=== PATIENT | male | born 1980 | race Caucasian/White ===

== ENCOUNTER 2018-08-14 18:38 | Observation (INO) | payer MEDICAID, OTHER ==
[~2018-08-14] VITALS: Ht 162.6 cm; Wt 70.5 kg
[~2018-08-14 18:38] MED LIST: ACET500C5 PO; CIPR500T4 PO; FAMO-96 PO; ONDA4TAB14 PO
[2018-08-15] VITALS (12 sets, daily range): BP systolic 103–124; BP diastolic 53–75; PULSE 43–68; RESP 18–19; Ht 162.6 cm; Wt 70.5 kg
--- NOTE | 2018-08-15 02:41 | ERD ---
ER Documentation Chief Complaint Chief Complaint CP RADIATING TO LEFT HAND WITH SLIGHT SOB AND VISION PROBLEMS X 2 DAYS HPI This is a 38-year-old male with chest pain radiating to the left and with slight shortness of breath over the past 2 days. He said the pain is mild to moderate, substernal that radiates to his left shoulder. Mild associated shortness of breath and mild nausea. History of hypercholesterolemia. Family history of cardiac disease. No other current complaints. ROS All systems reviewed and are negative except as per history of present illness. Medications Home Meds Discontinued Scripts Ciprofloxacin Hcl* (Ciprofloxacin Hcl*) 500 Mg Tablet, 500 MG PO BID for 7 Days, TAB Prov:ZULEIKA REDDY-Stephie 10/08/17 Famotidine* (Pepcid*) 20 Mg Tablet, 20 MG PO BID for 30 Days, TAB Prov:ZULEIKA REDDY-Stephie 10/08/17 Acetaminophen* (Tylophen*) 500 Mg Capsule, 1 CAP PO Q6H PRN for PAIN AND OR ELEVATED TEMP, #20 CAP Prov:ZULEIKA REDDY PA-C 10/08/17 Ondansetron (Ondansetron Odt) 4 Mg Tab.rapdis, 4 MG PO Q6H PRN for NAUSEA AND/OR VOMITING, #10 TAB Prov:ZULEIKA REDDY PA-C 10/08/17 Allergies Allergies: Coded Allergies: No Known Allergy (Unverified , 08/14/18) PMhx/Soc Medical and Surgical Hx: pt denies Medical Hx, pt denies Surgical Hx Hx Alcohol Use: No Hx Substance Use: No Hx Tobacco Use: No Smoking Status: Never smoker Physical Exam Vitals Vital Signs Date Temp Pulse Resp B/P (MAP) Pulse Ox O2 O2 Flow FiO2 Time Delivery Rate 08/14/18 98.2 62 16 154/90 98 19:38 (111) Physical Exam Const: No acute distress Head: Atraumatic Eyes: Normal Conjunctiva ENT: Normal External Ears, Nose and Mouth. Neck: Full range of motion. No meningismus. Resp: Clear to auscultation bilaterally Cardio: Regular rate and rhythm, no murmurs Abd: Soft, non tender, non distended. Normal bowel sounds Skin: No petechiae or rashes Back: No midline or flank tenderness Ext: No cyanosis, or edema Neur: Awake and alert Psych: Normal Mood and Affect Result Diagram: 08/15/18 0058 08/15/18 0058 Results 24 hrs Laboratory Tests Test 08/15/18 00:58 White Blood Count 5.3 10^3/ul Red Blood Count 5.25 10^6/ul Hemoglobin 15.7 g/dl Hematocrit 47.1 % Mean Corpuscular Volume 89.7 fl Mean Corpuscular Hemoglobin 29.9 pg Mean Corpuscular Hemoglobin Concent 33.3 g/dl Red Cell Distribution Width 11.8 % Platelet Count 239 10^3/UL Mean Platelet Volume 8.9 fl Immature Granulocytes % 0.400 % Neutrophils % 48.5 % Lymphocytes % 41.6 % Monocytes % 6.8 % Eosinophils % 1.9 % Basophils % 0.8 % Nucleated Red Blood Cells % 0.0 /100WBC Immature Granulocytes # 0.020 10^3/ul Neutrophils # 2.6 10^3/ul Lymphocytes # 2.2 10^3/ul Monocytes # 0.4 10^3/ul Eosinophils # 0.1 10^3/ul Basophils # 0.0 10^3/ul Nucleated Red Blood Cells # 0.0 10^3/ul Sodium Level 143 mmol/L Potassium Level 3.9 mmol/L Chloride Level 102 mmol/L Carbon Dioxide Level 28 mmol/L Anion Gap 13 Blood Urea Nitrogen 14 mg/dl Creatinine 0.73 mg/dl Est Glomerular Filtrat Rate mL/min > 60 mL/min Glucose Level 96 mg/dl Calcium Level 9.7 mg/dl Total Bilirubin 1.0 mg/dl Direct Bilirubin 0.00 mg/dl Indirect Bilirubin 1.0 mg/dl Aspartate Amino Transf (AST/SGOT) 29 IU/L Alanine Aminotransferase (ALT/SGPT) 34 IU/L Alkaline Phosphatase 67 IU/L Troponin I < 0.012 ng/ml B-Type Natriuretic Peptide 21 PG/ML Total Protein 8.0 g/dl Albumin 4.8 g/dl Globulin 3.20 g/dl Albumin/Globulin Ratio 1.50 Current Medications Medications Dose Sig/Georgette Start Time Status Last (Trade) Ordered Route PRN Stop Time Admin Dose Reason Admin IV Flush 3 ml PER 08/15/18 UNV (NS 3 ml) PROTOCOL IV 03:00 Ondansetron 4 mg Q6H PRN 08/15/18 UNV HCl (Zofran IV 03:00 Inj) NAUSEA/VOMITI NG Aspirin 81 mg DAILY PO 08/15/18 UNV (Aspirin) 09:00 1 tab Q5M PRN 08/15/18 UNV Nitroglycerin SL .CHEST 03:00 PAIN (Nitroglyceri n (Sl Tab) 0.4 Mg) 650 mg Q6H PRN 08/15/18 UNV Acetaminophen PO .PAIN 1-3 03:00 (Tylenol OR TEMP Tab) Morphine 2 mg Q4H PRN 08/15/18 UNV Sulfate IV .PAIN 03:00 (morphine) 7-10 Docusate 100 mg Q12H PRN 08/15/18 UNV Sodium PO 03:00 (Colace) .CONSTIPATION Bisacodyl 5 mg DAILY PRN 08/15/18 UNV (Dulcolax) PO 03:00 .CONSTIPATION Procedures/MDM Emergency department course: Patient seen and evaluated S. Placed in a bed for MD evaluation. Placed on continuous cardiac monitoring. A stat cardiac workup. Diagnostic data: EKG: Rate/Rhythm: [Normal Sinus Rhythm] QRS, ST, T-waves: [No changes consistent w/ acute ischemia] Impression: [No evidence of ischemia or arrhythmia] Chest X-ray 1V Interpreted by me: Soft Tissue: No acute abnormalities Bones: No acute abnormalities Mediastinum/Cardiac Silhouette/Lungs: [No acute abnormalities] Patient's symptoms are concerning for cardiac cause will require inpatient workup and continuous monitoring. Further w/u for ischemia, arrhythmia, PE or dissection will be deferred to the inpatient team. Accepting Care Team: Current data and ongoing care discussed. Time: 2:30 in the morning Primary Provider: Dr. Tariq Consulting: Deferred to inpatient Outstanding Data: none Departure Diagnosis: Primary Impression: Chest pain Chest pain type: unspecified Qualified Codes: R07.9 - Chest pain, unspecified Condition: Serious JU SHEIKHYaakov Aug 15, 2018 02:41
[2018-08-15] MEDS ORDERED: morphine 2 MG INJ IV PRN (03:00)
[2018-08-15] MEDS ORDERED: ACETAMINOPHEN 325 MG TAB PO PRN (03:00)
[2018-08-15] MEDS ORDERED: ONDANSETRON 4 MG INJ IV PRN (03:00)
[2018-08-15] MEDS ORDERED: BISACODYL (EC) 5 MG TAB PO PRN (03:00)
[2018-08-15] MEDS ORDERED: NACL 0.9% 3 ML SYG IV SCH (03:00)
[2018-08-15] MEDS ORDERED: DOCUSATE SODIUM 100 MG CAP PO PRN (03:00)
[2018-08-15] MEDS ORDERED: NITROGLYCERIN (SL) 0.4 MG TAB SL PRN (03:00)
--- NOTE | 2018-08-15 04:51 | HP ---
Date/Time of Note Date/Time of Note DATE: 08/15/18 TIME: 04:43 Assessment/Plan VTE Prophylaxis SCD applied (from Nsg): Yes Pharmacological prophylaxis: NA/contraindicated Pharm contraindication: low risk/ambulating Lines/Catheters IV Catheter Type (from Nrsg): Saline Lock Urinary Cath still in place: No Assessment/Plan Hospital Course This is a 38-year-old male being admitted to the telemetry floor for observation for: #1 chest pain: Rule out ACS. Will check cardiac enzymes x3, the first that was negative. Will check an echocardiogram. Aspirin/morphine for pain. Will check hemoglobin A1c, lipid panel, TSH #2 sinus bradycardia: This may be patient's baseline though we will continue to monitor closely. #3 hyperlipidemia: Check lipid panel, patient currently not on any medications #3 DVT GI prophylaxis: SCDs, no GI prophylaxis indicated Result Diagram: 08/15/18 0058 08/15/18 005 Results 24hrs Laboratory Tests Test 08/15/18 00:58 White Blood Count 5.3 # Red Blood Count 5.25 Hemoglobin 15.7 Hematocrit 47.1 Mean Corpuscular Volume 89.7 Mean Corpuscular Hemoglobin 29.9 Mean Corpuscular Hemoglobin Concent 33.3 Red Cell Distribution Width 11.8 Platelet Count 239 Mean Platelet Volume 8.9 Immature Granulocytes % 0.400 Neutrophils % 48.5 Lymphocytes % 41.6 Monocytes % 6.8 Eosinophils % 1.9 Basophils % 0.8 Nucleated Red Blood Cells % 0.0 Immature Granulocytes # 0.020 Neutrophils # 2.6 Lymphocytes # 2.2 Monocytes # 0.4 Eosinophils # 0.1 Basophils # 0.0 Nucleated Red Blood Cells # 0.0 Sodium Level 143 Potassium Level 3.9 Chloride Level 102 Carbon Dioxide Level 28 Anion Gap 13 Blood Urea Nitrogen 14 Creatinine 0.73 Est Glomerular Filtrat Rate mL/min > 60 Glucose Level 96 Calcium Level 9.7 Total Bilirubin 1.0 Direct Bilirubin 0.00 Indirect Bilirubin 1.0 Aspartate Amino Transf (AST/SGOT) 29 Alanine Aminotransferase (ALT/SGPT) 34 Alkaline Phosphatase 67 Troponin I < 0.012 B-Type Natriuretic Peptide 21 Total Protein 8.0 Albumin 4.8 Globulin 3.20 Albumin/Globulin Ratio 1.50 HPI/ROS Admit Date/Time Admit Date/Time Aug 15, 2018 at 02:29 Hx of Present Illness Chief complaint: Chest pain times 2 days This is a 38-year-old male who presented to the emergency department complaining of chest pain times 2 days. Patient reports that he was moving his furniture when he started having chest pain on the left side of the chest radiating to the left arm. He also experienced shortness of breath and pain going to his head. The symptoms then subsequently resolved on their own. Allergies: NKDA Medications: None ROS Const: As per HPI Eyes : No pain discharge or redness or change in visual acuity ENT: No pain, sore throat, congestion, congestion, dysphagia or discharge Respiratory: As per HPI Cardiovascular: As per HPI GI : no change in appetite, abdominal pain, nausea, vomiting, diarrhea, c onstipation, or change in the color his stool Genitourinary: No dysuria, hematuria, flank pain , discharge or CVA tenderness Musculoskeletal: No joint pain, back pain, neck pain, restricted range of motion in neck or joints Skin: No rash, bruising or hives Neuro: No headache, dizziness, syncope, seizure, focal weakness Endocrine: No polyuria, polydipsia, temperature intolerance Psych: No hallucination, depression, anxiety or suicidal ideation PMH/Family/Social Past Medical History Hypercholesterolemia Medications Current Medications IV Flush (NS 3 ml) 3 ml PER PROTOCOL IV ; Start 08/15/18 at 03:00 Ondansetron HCl (Zofran Inj) 4 mg Q6H PRN IV NAUSEA/VOMITING; Start 08/15/18 at 03:00 Aspirin (Aspirin) 81 mg DAILY PO ; Start 08/15/18 at 09:00 Nitroglycerin (Nitroglycerin (Sl Tab) 0.4 Mg) 1 tab Q5M PRN SL .CHEST PAIN; Start 08/15/18 at 03:00 Acetaminophen (Tylenol Tab) 650 mg Q6H PRN PO .PAIN 1-3 OR TEMP; Start 08/15/18 at 03:00 Morphine Sulfate (morphine) 2 mg Q4H PRN IV .PAIN 7-10; Start 08/15/18 at 03:00 Docusate Sodium (Colace) 100 mg Q12H PRN PO .CONSTIPATION; Start 08/15/18 at 03:00 Bisacodyl (Dulcolax) 5 mg DAILY PRN PO .CONSTIPATION; Start 08/15/18 at 03:00 Coded Allergies: No Known Allergy (Unverified , 08/14/18) Family History Significant Family History: diabetes Social History Alcohol Use: none Smoking Status: Never smoker Drug Use: none Exam/Review of Systems Vital Signs Vitals Vital Signs Date Temp Pulse Resp B/P (MAP) Pulse Ox O2 O2 Flow FiO2 Time Delivery Rate 08/15/18 97.8 52 18 124/75 99 Room Air 03:15 (91) Exam Exam General: Patient is a pleasant male currently lying in bed in no acute distress HEENT: Atraumatic, normocephalic. The pupils are equal, round and reactive. Extraocular motor are intact Neck: Supple with full range of motion. No rigidity or meningismus Chest: Nontender Lungs: Clear to auscultation bilaterally no crackles rales or wheezing Heart: Sinus bradycardia Abdomen: Soft , nontender, nondistended , bowel sounds are present. No guarding no rebound tenderness , No masses or organomegaly. No costovertebral temporal angle mass Extremities: Normal to inspection, no edema no cyanosis Neurologic: Normal mental status, speech normal, cranial nerves II through XII are intact, motor and sensory are intact, Additional Comments laboratory monitor showing sinus bradycardia at approximately 54 bpm GRETEL LYN Aug 15, 2018 04:51
[2018-08-15] MEDS: ASPIRIN 81 MG TAB PO SCH (09:57)
--- NOTE | 2018-08-15 11:07 | PN ---
Date/Time of Note Date/Time of Note DATE: 08/15/18 TIME: 11:01 Assessment/Plan VTE Prophylaxis SCD applied (from Nsg): Yes Pharmacological prophylaxis: NA/contraindicated Pharm contraindication: low risk/ambulating Lines/Catheters IV Catheter Type (from Nrsg): Saline Lock Urinary Cath still in place: No Assessment/Plan Hospital Course SUBJECTIVE: Denies any chest pain at this time. OBJECTIVE: Physical Exam General: Adequately build 38 year-old male lying in bed in no apparent distress. HEENT: Normocephalic, atraumatic. Eyes: Anicteric sclerae, conjunctivae clear. ENT: Nasal septum midline, oral mucosa moist. Neck supple, no JVD noticed. Respiratory: Bilaterally clear breath sounds. No use of accessory muscles of respiration. No adventitious breath sounds. Cardiovascular: S1, S2 heard. Regular rate and rhythm. Abdomen: Soft, nontender, and nondistended. Bowel sounds positive in all 4 quadrants. Genitourinary: Deferred. Extremities: No cyanosis, no clubbing, no edema. Peripheral pulses palpable. Neurologic: Cranial nerves II through XII grossly intact. The patient is awake, alert, and oriented. Skin: Normal skin turgor. No skin rashes. Labs & Vitals per chart ASSESSMENT & PLAN 38-year-old male with no significant past medical history other than reported dyslipidemia who came to the emergency room with chief complaint of chest pain with radiation to the left upper extremity with associated dyspnea and visual disturbances. The patient was admitted to inpatient setting for further treatment and evaluation. 1. Chest pain. -Will rule out ACS. -Serial troponins negative so far. -Pending 2D echocardiogram. -Obtain cardiology consult. 2. Reported history of dyslipidemia. -Fasting lipid panel satisfactory. -Low-cholesterol diet. 3. Fluids, electrolytes, and nutrition. -Low-cholesterol diet. 4. DVT prophylaxis. -Bilateral SCDs. 5. Plan. -Trend troponins -Await 2D echocardiogram -Await cardiology evaluation. The patient was seen in collaboration with Dr. Faye. Result Diagram: 08/15/18 0058 08/15/18 0058 Results 24hrs Laboratory Tests Test 08/15/18 00:58 08/15/18 05:13 08/15/18 05:14 White Blood Count 5.3 # Red Blood Count 5.25 Hemoglobin 15.7 Hematocrit 47.1 Mean Corpuscular Volume 89.7 Mean Corpuscular Hemoglobin 29.9 Mean Corpuscular Hemoglobin Concent 33.3 Red Cell Distribution Width 11.8 Platelet Count 239 Mean Platelet Volume 8.9 Immature Granulocytes % 0.400 Neutrophils % 48.5 Lymphocytes % 41.6 Monocytes % 6.8 Eosinophils % 1.9 Basophils % 0.8 Nucleated Red Blood Cells % 0.0 Immature Granulocytes # 0.020 Neutrophils # 2.6 Lymphocytes # 2.2 Monocytes # 0.4 Eosinophils # 0.1 Basophils # 0.0 Nucleated Red Blood Cells # 0.0 Sodium Level 143 Potassium Level 3.9 Chloride Level 102 Carbon Dioxide Level 28 Anion Gap 13 Blood Urea Nitrogen 14 Creatinine 0.73 Est Glomerular Filtrat Rate mL/min > 60 Glucose Level 96 Calcium Level 9.7 Total Bilirubin 1.0 Direct Bilirubin 0.00 Indirect Bilirubin 1.0 Aspartate Amino Transf (AST/SGOT) 29 Alanine Aminotransferase (ALT/SGPT) 34 Alkaline Phosphatase 67 Troponin I < 0.012 < 0.012 B-Type Natriuretic Peptide 21 Total Protein 8.0 Albumin 4.8 Globulin 3.20 Albumin/Globulin Ratio 1.50 Magnesium Level 2.1 Creatine Kinase 186 Creatine Kinase Index 0.6 Creatinine Kinase MB (Mass) 1.07 Triglycerides Level 85 Cholesterol Level 193 LDL Cholesterol, Calculated 128 HDL Cholesterol 48 Cholesterol/HDL Ratio 4.0 Thyroid Stimulating Hormone (TSH) 6.900 H Hemoglobin A1c 5.3 Exam/Review of Systems Exam Vitals Vital Signs Date Temp Pulse Resp B/P (MAP) Pulse Ox O2 O2 Flow FiO2 Time Delivery Rate 08/15/18 68 08:00 08/15/18 98.5 18 103/63 98 07:42 (76) 08/15/18 Room Air 03:15 Intake and Output 08/14/18 08/14/18 08/15/18 1414:59 22:59 06:59 IntakeIntake Total 100 ml BalanceBalance 100 ml Results Results 24hrs Laboratory Tests Test 08/15/18 00:58 08/15/18 05:13 08/15/18 05:14 White Blood Count 5.3 # Red Blood Count 5.25 Hemoglobin 15.7 Hematocrit 47.1 Mean Corpuscular Volume 89.7 Mean Corpuscular Hemoglobin 29.9 Mean Corpuscular Hemoglobin Concent 33.3 Red Cell Distribution Width 11.8 Platelet Count 239 Mean Platelet Volume 8.9 Immature Granulocytes % 0.400 Neutrophils % 48.5 Lymphocytes % 41.6 Monocytes % 6.8 Eosinophils % 1.9 Basophils % 0.8 Nucleated Red Blood Cells % 0.0 Immature Granulocytes # 0.020 Neutrophils # 2.6 Lymphocytes # 2.2 Monocytes # 0.4 Eosinophils # 0.1 Basophils # 0.0 Nucleated Red Blood Cells # 0.0 Sodium Level 143 Potassium Level 3.9 Chloride Level 102 Carbon Dioxide Level 28 Anion Gap 13 Blood Urea Nitrogen 14 Creatinine 0.73 Est Glomerular Filtrat Rate mL/min > 60 Glucose Level 96 Calcium Level 9.7 Total Bilirubin 1.0 Direct Bilirubin 0.00 Indirect Bilirubin 1.0 Aspartate Amino Transf (AST/SGOT) 29 Alanine Aminotransferase (ALT/SGPT) 34 Alkaline Phosphatase 67 Troponin I < 0.012 < 0.012 B-Type Natriuretic Peptide 21 Total Protein 8.0 Albumin 4.8 Globulin 3.20 Albumin/Globulin Ratio 1.50 Magnesium Level 2.1 Creatine Kinase 186 Creatine Kinase Index 0.6 Creatinine Kinase MB (Mass) 1.07 Triglycerides Level 85 Cholesterol Level 193 LDL Cholesterol, Calculated 128 HDL Cholesterol 48 Cholesterol/HDL Ratio 4.0 Thyroid Stimulating Hormone (TSH) 6.900 H Hemoglobin A1c 5.3 Medications Medication Current Medications IV Flush (NS 3 ml) 3 ml PER PROTOCOL IV ; Start 08/15/18 at 03:00 Ondansetron HCl (Zofran Inj) 4 mg Q6H PRN IV NAUSEA/VOMITING; Start 08/15/18 at 03:00 Aspirin (Aspirin) 81 mg DAILY PO Last administered on 08/15/18at 09:57; Admin Dose 81 MG; Start 08/15/18 at 09:00 Nitroglycerin (Nitroglycerin (Sl Tab) 0.4 Mg) 1 tab Q5M PRN SL .CHEST PAIN; Start 08/15/18 at 03:00 Acetaminophen (Tylenol Tab) 650 mg Q6H PRN PO .PAIN 1-3 OR TEMP Last administered on 08/15/18at 09:57; Admin Dose 650 MG; Start 08/15/18 at 03:00 Morphine Sulfate (morphine) 2 mg Q4H PRN IV .PAIN 7-10; Start 08/15/18 at 03:00 Docusate Sodium (Colace) 100 mg Q12H PRN PO .CONSTIPATION; Start 08/15/18 at 03:00 Bisacodyl (Dulcolax) 5 mg DAILY PRN PO .CONSTIPATION; Start 08/15/18 at 03:00 SOFIE RAMOS NP Aug 15, 2018 11:07
--- NOTE | 2018-08-15 21:26 | RADRPT ---
Echocardiogram Report Patient Name: SHAILESH HUTCHINSONASPatient ID: [id number] : 1980 (38y 5m)Study Date: 08/15/2018 8:07:20 AM Gender: Samariacession #: [id number] Tech: [place] Location: Ref.Physician: GRETEL LYN Height(Cm): BSA: Weight(Kg): Quality: GoodAccount #: Procedures: Echocardiographic Report: Transthoracic echocardiogram with complete 2D, M-Mode, and doppler examination. Indications: Chest Pain. Measurements: 2D/M Mode Doppler Measurement Value Normal Range Measurement Value Normal Range LVIDd 2D 4.6 [ 4.2 - 5.8 ] cm AV Peak Silas 1.3 [ 100.0 - 170.0 ] cm/sec LVIDs 2D 2.8 [ 2.5 - 4.0 ] cm AV Peak PG 7.0 [ 2.0 - 9.0 ] mmHg LVPWd 2D 1.0 [ 0.6 - 1.0 ] cm LVOT Peak Silas 0.9 [ 70.0 - 110.0 ] cm/sec IVSd 2D 0.8 [ 0.6 - 1.0 ] cm LVOT Peak PG 3.0 [ 2.0 - 6.0 ] mmHg AoR Diam 2D 2.3 [ 2.6 - 3.4 ] cm MV E Peak Silas 0.8 [ 60.0 - 130.0 ] cm/sec EDV 2D 94.9 [ 62.0 - 150.0 ] ml MV A Peak Silas 0.5 [ 100.0 - 120.0 ] cm/sec ESV 2D 30.9 [ 21.0 - 61.0 ] ml MV E/A 1.8 [ 0.8 - 1.5 ] ratio EF 2D 67.4 [ 52.0 - 72.0 ] percent MV Decel Time 250 [ 104 - 258 ] msec LA Dimen 2D 2.6 [ 3.0 - 4.0 ] cm MV E/A 1.8 [ 0.8 - 1.5 ] ratio Findings: Left Ventricle: Normal left ventricular systolic function. Normal left ventricular cavity size. Normal left ventricular wall thickness. Ejection fraction is visually estimated at 55 %. Tissue Doppler/Mitral Doppler indices are within normal limits. Right Ventricle: Normal right ventricular size. Normal right ventricular systolic function. Left Atrium: The left atrium is normal in size. Right Atrium: The right atrium is normal in size. Mitral Valve: Mitral valve leaflets appear mildly thickened. Mild mitral annular calcification. Trace mitral regurgitation. Aortic Valve: Normal appearance of the aortic valve. No significant aortic stenosis or insufficiency. Tricuspid Valve: Normal appearance of the tricuspid valve. Unable to obtain RVSP due to minimal presence of tricuspid regurgitation. Pulmonic Valve: Normal pulmonic valve appearance. Pericardium: Normal pericardium with no significant pericardial effusion. Aorta: Normal aortic root. IVC: Normal size and normal respiratory collapse consistent with normal right atrial pressure. Conclusions: Normal left ventricular systolic function. Normal left ventricular cavity size. Normal left ventricular wall thickness. Ejection fraction is visually estimated at 55 %. Tissue Doppler/Mitral Doppler indices are within normal limits. Mitral valve leaflets appear mildly thickened. Mild mitral annular calcification. Trace mitral regurgitation. Normal appearance of the tricuspid valve. Unable to obtain RVSP due to minimal presence of tricuspid regurgitation. Electronically Signed By: Nik Chand 2018-08-15 21:26:12 PDT
[2018-08-16] VITALS (7 sets, daily range): BP systolic 101–120; BP diastolic 57–60; PULSE 54–70; RESP 18–19
--- NOTE | 2018-08-16 01:04 | CONS ---
DATE OF ADMISSION: 08/15/2018 DATE OF CONSULTATION: 08/15/2018 REASON FOR CONSULTATION: Chest pain, assess for acute coronary syndrome. REQUESTING PHYSICIAN: Antelmo Hernández MD from the hospitalist service. HISTORY OF PRESENT ILLNESS: Mr. Stevenson is a 38-year-old male with history of dyslipidemia who presented with complaints of substernal chest pain. The patient describes chest pain as stabbing sensation located in the left part of his chest and then radiates to his arm and down to his fingers with numbness in his fingers. The patient states that on the day of admit, he has chest pain approximately 2 hours. The patient states that prior to this, he has had chest pain once per week, lasting multiple minutes for the last 2 months. The patient has mild associated shortness of breath. The patient states chest pain is both at rest and with exertion. Upon arrival in the hospital, temperature 98.2, blood pressure 154/90, pulse 60, respiratory rate 16, 98%. The patient's labs were notable for a sodium 140, creatinine 0.7, BUN 14. Troponin negative. BNP 21. White blood cell count 5.3, hemoglobin 6.7, platelet count 239. The patient's chest x-ray revealed evidence for acute cardiopulmonary abnormalities. The patient's electrocardiogram revealed sinus bradycardia, rate 59 right axis deviation with inferior T-wave inversions. The patient subsequently admitted to the floor and since admit to the floor, has had 3 negative troponins. The patient monitored on telemetry revealing sinus rhythm, no significant arrhythmias or pauses. Patient denies ongoing chest pain. PAST MEDICAL HISTORY: As above in HPI. ALLERGIES: NO KNOWN DRUG ALLERGIES. MEDICATIONS CURRENTLY IN HOSPITAL: 1. Aspirin 81 mg daily. 2. Sublingual nitroglycerin p.r.n. 3. Tylenol p.r.n. 4. Morphine p.r.n. 5. Colace p.r.n. 6. Dulcolax p.r.n. SOCIAL HISTORY: No tobacco, ETOH or illicit drug use. FAMILY HISTORY: No history of sudden cardiac or early CAD. REVIEW OF SYSTEMS: As above in HPI. CONSTITUTIONAL: No fevers, chills. PULMONARY: No current shortness of breath. CARDIOVASCULAR: Intermittent chest pain. GASTROINTESTINAL: No vomiting. GENITOURINARY: No hematuria. MUSCULOSKELETAL: No degenerative joint disease. PSYCHIATRIC: No documented psych history. NEUROLOGIC: No documented history of CVA. ENDOCRINE: No documented history of diabetes mellitus. PHYSICAL EXAMINATION: VITAL SIGNS: Temperature 98.8, blood pressure 112/58, pulse 65, respiratory rate 19, satting 96%. GENERAL: The patient is alert, awake, in no acute distress. NECK: JVP approximately 8 to 9 cm of water. CHEST: Fair air movement throughout. HEART: Regular rate and rhythm. Normal S1, S2. I/ systolic murmur, nondisplaced PMI. ABDOMEN: Positive bowel sounds, soft. EXTREMITIES: No edema, 1+ pulses bilaterally, posterior tibial pulse. LABORATORIES: Most recent from today, troponin negative x3. TSH of 6.9, mildly elevated. LDL 120, HDL 40. IMAGING STUDIES: As above in HPI. No further imaging studies for my review at this time. ECG: As above in HPI. No further electrocardiograms for my review at this time. IMPRESSION: 1. Chest pain, assess for acute coronary syndrome. 2. Electrocardiogram with inferior T-wave inversion, assess for acute coronary syndrome. 3. Dyslipidemia. 4. Elevated TSH. RECOMMENDATIONS: 1. At this time, would maintain the patient on telemetry monitoring to follow rhythm and rates closely. 2. The patient is status post troponin negative x3, continue with chest pain. 3. We will give the patient sublingual nitroglycerin for recurrent episodes of concerning chest pain. 4. Continue patient's aspirin for prophylaxis against cardiovascular events. 5. Follow up patient's 2D echo done for assessment of ejection fraction, wall motion, and major abnormalities. If the patient continued to have chest pain then the patient is to be scheduled for a stress test to take place in the morning to assure the patient does not have any significant ischemia related to chest pain and subsequent admit to the hospital. Thank you for allowing me to take part in the care of this patient. I will continue to follow along very closely with you with further recommendations to be made as the patient progresses through his inpatient hospital clinical course. Dictated By: TRACEY GARNER/PATY Conf#: [id number] DID#: [id number] ROSALBA
[2018-08-16] MEDS: ASPIRIN 81 MG TAB PO SCH (08:25)
[2018-08-16] MEDS ORDERED: REGADENOSON 0.4 MG/5 ML SYG ONE (12:31)
--- NOTE | 2018-08-16 13:51 | CONS ---
Assessment/Plan Assessment/Plan Hospital Course (Demo Recall) IMPRESSION: 1. Chest pain, assess for acute coronary syndrome.-neg trop x 3/NL: EF by echo 2. Electrocardiogram with inferior T-wave inversion, assess for acute coronary syndrome. 3. Dyslipidemia.-LDL 128 HDL 48 4. Elevated TSH. Recc; -Tele -seral ecg's -Continue asa -Lexiscan stress test today and if negative for ischemia then ok for d/c form cardiac standpoint Consultation Date/Type/Reason Admit Date/Time Aug 15, 2018 at 02:29 Initial Consult Date 08/15/18 Type of Consult Cardiology Reason for Consultation chest pain Requesting Provider: GRETEL LYN Date/Time of Note DATE: 08/16/18 TIME: 13:48 Exam/Review of Systems Vital Signs Vitals Vital Signs Date Temp Pulse Resp B/P (MAP) Pulse Ox O2 O2 Flow FiO2 Time Delivery Rate 08/16/18 66 12:00 08/16/18 98.2 19 117/59 96 11:32 (78) 08/16/18 Room Air 11:32 Intake and Output 08/15/18 08/15/18 08/16/18 1515:00 23:00 07:00 IntakeIntake Total 1100 ml 800 ml BalanceBalance 1100 ml 800 ml Exam Exam Review of Systems: CONSTITUTIONAL: No fevers, chills. PULMONARY: No sob CARDIOVASCULAR: No chest pain/palpitations GASTROINTESTINAL: No nausea/vomiting. GENITOURINARY: No hematuria/dysuria. MUSCULOSKELETAL: No myagias/arthalgias. PSYCHIATRIC: The patient denies depression. NEUROLOGIC: No weakness Constitutional: alert Psych: no complaints Head: normocephalic ENMT: mucosa pink and moist Neck: supple, jvd (9 cm water) Respiratory: diminished breath sounds Cardiovascular: regular rate and rhythm Gastrointestinal: soft, non-tender Musculoskeletal: muscle tone (normal) Extremities: edema (none) Neurological: other (No focal deficits) Labs Result Diagram: 08/16/18 0530 08/16/18 0530 Results 24hrs Laboratory Tests Test 08/16/18 05:30 White Blood Count 5.1 Red Blood Count 5.24 Hemoglobin 15.7 Hematocrit 47.1 Mean Corpuscular Volume 89.9 Mean Corpuscular Hemoglobin 30.0 Mean Corpuscular Hemoglobin Concent 33.3 Red Cell Distribution Width 11.8 Platelet Count 233 Mean Platelet Volume 9.3 Immature Granulocytes % 0.400 Neutrophils % 55.2 Lymphocytes % 33.9 Monocytes % 7.5 Eosinophils % 2.4 Basophils % 0.6 Nucleated Red Blood Cells % 0.0 Immature Granulocytes # 0.020 Neutrophils # 2.8 Lymphocytes # 1.7 Monocytes # 0.4 Eosinophils # 0.1 Basophils # 0.0 Nucleated Red Blood Cells # 0.0 Sodium Level 143 Potassium Level 3.9 Chloride Level 107 Carbon Dioxide Level 26 Anion Gap 10 Blood Urea Nitrogen 20 Creatinine 0.92 Est Glomerular Filtrat Rate mL/min > 60 Glucose Level 94 Calcium Level 9.7 Phosphorus Level 4.5 Magnesium Level 2.1 Total Bilirubin 1.6 H Direct Bilirubin 0.00 Indirect Bilirubin 1.6 H Aspartate Amino Transf (AST/SGOT) 24 Alanine Aminotransferase (ALT/SGPT) 33 Alkaline Phosphatase 52 Total Protein 7.2 Albumin 4.3 Globulin 2.90 Albumin/Globulin Ratio 1.48 Medications Medications Current Medications IV Flush (NS 3 ml) 3 ml PER PROTOCOL IV ; Start 08/15/18 at 03:00 Ondansetron HCl (Zofran Inj) 4 mg Q6H PRN IV NAUSEA/VOMITING; Start 08/15/18 at 03:00 Aspirin (Aspirin) 81 mg DAILY PO Last administered on 08/16/18at 08:25; Admin Dose 81 MG; Start 08/15/18 at 09:00 Nitroglycerin (Nitroglycerin (Sl Tab) 0.4 Mg) 1 tab Q5M PRN SL .CHEST PAIN; Start 08/15/18 at 03:00 Acetaminophen (Tylenol Tab) 650 mg Q6H PRN PO .PAIN 1-3 OR TEMP Last administered on 08/15/18at 09:57; Admin Dose 650 MG; Start 08/15/18 at 03:00 Morphine Sulfate (morphine) 2 mg Q4H PRN IV .PAIN 7-10; Start 08/15/18 at 03:00 Docusate Sodium (Colace) 100 mg Q12H PRN PO .CONSTIPATION; Start 08/15/18 at 03:00 Bisacodyl (Dulcolax) 5 mg DAILY PRN PO .CONSTIPATION; Start 08/15/18 at 03:00 TRACEY ALEXANDER Aug 16, 2018 13:51
--- NOTE | 2018-08-16 14:25 | RADRPT ---
Vent Rate: 56 bpm RR Interval: 1064 msec NH Interval: 142 msec QRS Duration: 91 msec QT Interval: 425 msec QTC Interval: 412 msec P-R-T [place]: 64 - 85 - 46 degrees Sinus rhythm...normal P axis, V-rate 50- 99 ST elev, probable normal early repol pattern...ST elevation, age<55 Electronically Signed By: Lio Feliciano
--- NOTE | 2018-08-16 15:16 | CARRPT ---
DATE OF PROCEDURE: 08/16/2018 TYPE OF PROCEDURE: Lexiscan Cardiolite stress test, electrocardiogram portion. INDICATION: Chest pain, assess for ischemia. BASELINE VITAL SIGNS AND ELECTROCARDIOGRAM: Pulse 65, blood pressure 114/67. Electrocardiogram show s normal sinus rhythm, rate of 65, normal axis, normal intervals, inferior T-wave inversion. DESCRIPTION OF PROCEDURE: The patient with standard Lexiscan infusion protocol over 10 seconds follo wed by radiolabeled tracer. The patient's test was stopped due to completion of protocol. Maximal a chieved blood pressure during the test is 132/65. Maximum heart rate during the test is 118. ELECTROCARDIOGRAM FINDINGS: The patient did not develop any new Lexiscan-induced ST or T-wave change s from baseline abnormalities. No documented PVCs. SYMPTOMS: The patient had mild complaints of chest pain and shortness breath during stress test that resolved in recovery. IMPRESSION: 1. No Lexiscan-induced ST or T-wave changes from baseline abnormalities that are diagnostic of cardi ac ischemia. 2. Complaints of chest pain, shortness of breath during stress testing that resolved in recovery. 3. No documented premature ventricular contractions during stress testing. 4. Report of nuclear images to follow in separate dictation. Dictated By: TRACEY GARNER/PATY Conf#: [id number] DID#: [id number] CC: GRETEL LYN MD;*EndCC*
--- NOTE | 2018-08-16 16:01 | PDOCDIS ---
Discharge Instructions CONDITION [id number] Patient Condition: [id number] Stable HOME CARE INSTRUCTIONS: [id number] Diet Instructions: [id number] Low Fat /Cholesterol (Number) OTHER ORDERS: Other Orders: 1. Take a regular, preferably low-cholesterol diet. 2. Resume activities as tolerated. 3. Follow-up with your primary care physician as scheduled. 4. Please go to the nearest emergency room if you have any chest pain, signific ant shortness of breath, or any other unusual signs/symptoms. SOFIE RAMOS NP Aug 16, 2018 16:01
--- NOTE | 2018-08-16 17:09 | DS ---
Date/Time of Note Date/Time of Note DATE: 08/16/18 TIME: 17:07 Discharge Summary Admission/Discharge Info Admit Date/Time Aug 15, 2018 at 02:29 Discharge Date/Time Aug 16, 2018 at 16:53 Discharge Diagnosis 1. Atypical chest pain. 2. Dyslipidemia. Patient Condition: Stable Consults 1. Nik Chand MD, Cardiology. Procedures 2D Echocardiogram Conclusions: Normal left ventricular systolic function. Normal left ventricular cavity size. Normal left ventricular wall thickness. Ejection fraction is visually estimated at 55 %. Tissue Doppler/Mitral Doppler indices are within normal limits. Mitral valve leaflets appear mildly thickened. Mild mitral annular calcification. Trace mitral regurgitation. Normal appearance of the tricuspid valve. Unable to obtain RVSP due to minimal presence of tricuspid regurgitation. NM Cardiac Stress Test IMPRESSION: 1. No evidence of stress-induced ischemia. 2. No wall motion abnormalities. 3. The left ventricle ejection fraction at stress is 67%. Hx of Present Illness This is a 38-year-old male with no significant past medical history other than reported dyslipidemia who came to the emergency room with chief complaint of chest pain with radiation to the left upper extremity with associated dyspnea and visual disturbances. The patient was admitted to inpatient setting for further treatment and evaluation. Hospital Course The patient was started on aspirin. A cardiology consult was obtained. Serial troponins were ordered. A 2D echocardiogram was obtained. The patient's 2D echocardiogram showed preserved left ventricular ejection fraction. The patient underwent a nuclear medicine cardiac stress test that was negative for any reversible perfusion defects. The patient was cleared by cardiology to be di scharged home. The patient's chest pain could have been most probably musculoskeletal in origin. The patient reported a history of dyslipidemia. Nevertheless, the patient's fasting lipid panel was satisfactory. The patient's hemoglobin A1c was 5.3. The patient had a stable hospital course. The patient is stable to be discharged home. Discharge Instructions 1. Take a regular, preferably low-cholesterol diet. 2. Resume activities as tolerated. 3. Follow-up with your primary care physician as scheduled. 4. Please go to the nearest emergency room if you have any chest pain, significant shortness of breath, or any other unusual signs/symptoms. The patient verbalized understanding of his discharge instructions. At this time I would like to thank Dr. Chand for seeing the patient and providing clinical recommendations. The patient was seen in collaboration with Dr. Torres. Home Meds Discontinued Scripts Ciprofloxacin Hcl* (Ciprofloxacin Hcl*) 500 Mg Tablet, 500 MG PO BID for 7 Days, TAB Prov:MAUREENZULEIKA SIEGEL 10/08/17 Famotidine* (Pepcid*) 20 Mg Tablet, 20 MG PO BID for 30 Days, TAB Prov:MAUREENZULEIKA SIEGEL 10/08/17 Acetaminophen* (Tylophen*) 500 Mg Capsule, 1 CAP PO Q6H PRN for PAIN AND OR ELEVATED TEMP, #20 CAP Prov:MAUREENZULEIKA SIEGEL 10/08/17 Ondansetron (Ondansetron Odt) 4 Mg Tab.rapdis, 4 MG PO Q6H PRN for NAUSEA AND/OR VOMITING, #10 TAB Prov:HELIO REDDYJUAN SIEGEL 10/08/17 Follow-up Plan Patient to follow-up with his primary care physician in 2 weeks. Primary Care Provider Care Physician No Primary Time spent on discharge: > 30 minutes Pending Labs Laboratory Tests Test 08/16/18 05:30 White Blood Count 5.1 10^3/ul (4.8-10.8) Red Blood Count 5.24 10^6/ul (4.70-6.10) Hemoglobin 15.7 g/dl (14.0-18.0) Hematocrit 47.1 % (42.0-52.0) Mean Corpuscular Volume 89.9 fl (82.0-101.0) Mean Corpuscular Hemoglobin 30.0 pg (29.0-33.0) Mean Corpuscular Hemoglobin Concent 33.3 g/dl (32.0-37.0) Red Cell Distribution Width 11.8 % (11.5-14.5) Platelet Count 233 10^3/UL (140-415) Mean Platelet Volume 9.3 fl (7.4-10.4) Immature Granulocytes % 0.400 % (0.001-0.429) Neutrophils % 55.2 % (39.0-77.0) Lymphocytes % 33.9 % (15.0-51.0) Monocytes % 7.5 % (0.0-11.0) Eosinophils % 2.4 % (0.0-7.0) Basophils % 0.6 % (0.0-2.0) Nucleated Red Blood Cells % 0.0 /100WBC (0.0-0.0) Immature Granulocytes # 0.020 10^3/ul (0.0-0.031) Neutrophils # 2.8 10^3/ul (1.6-7.5) Lymphocytes # 1.7 10^3/ul (0.8-2.9) Monocytes # 0.4 10^3/ul (0.3-0.9) Eosinophils # 0.1 10^3/ul (0.0-0.5) Basophils # 0.0 10^3/ul (0.0-0.1) Nucleated Red Blood Cells # 0.0 10^3/ul (0.0-0.0) Sodium Level 143 mmol/L (135-144) Potassium Level 3.9 mmol/L (3.5-5.1) Chloride Level 107 mmol/L (97-110) Carbon Dioxide Level 26 mmol/L (21-31) Anion Gap 10 (5-13) Blood Urea Nitrogen 20 mg/dl (7-20) Creatinine 0.92 mg/dl (0.61-1.24) Est Glomerular Filtrat Rate mL/min > 60 mL/min (>60) Glucose Level 94 mg/dl (70-220) Calcium Level 9.7 mg/dl (8.4-10.2) Phosphorus Level 4.5 mg/dl (2.5-4.9) Magnesium Level 2.1 mg/dl (1.7-2.5) Total Bilirubin 1.6 mg/dl (0.2-1.3) Direct Bilirubin 0.00 mg/dl (0.00-0.20) Indirect Bilirubin 1.6 mg/dl (0-1.1) Aspartate Amino Transf (AST/SGOT) 24 IU/L (15-46) Alanine Aminotransferase (ALT/SGPT) 33 IU/L (13-69) Alkaline Phosphatase 52 IU/L (42-121) Total Protein 7.2 g/dl (6.1-8.1) Albumin 4.3 g/dl (3.3-4.9) Globulin 2.90 g/dl (1.3-3.2) Albumin/Globulin Ratio 1.48 SOFIE RAMOS NP Aug 16, 2018 17:09
== END 2018-08-16 16:53 | disposition home or self-care (01) ==
LOC: E/R 18:38 → INTOOBSV 08-15 02:29 → 6WM 08-15 02:29
PROVIDERS: ADMIT Family Medicine; ATTEND Family Medicine
DX: R07.89 Other chest pain (principal); E78.5 Hyperlipidemia, unspecified
CPT/HCPCS: 36415; 71045; 78452; 80053; 80061; 82550; 82553; 83036; 83735; 83880; 84100; 84443; 84484; 85025; 93005; 93017; 93306; 99217; 99285; A9500; A9505; G0378; J2785